=== PATIENT | male | born 1950 | race Caucasian/White ===

== ENCOUNTER 2023-08-24 08:40 | Inpatient (IN) | payer OTHER ==
[~2023-08-24] VITALS: Ht 180.3 cm; Wt 98.1 kg
[2023-08-24 09:31] LABS: BASOPHILS ABSOLUTE AUTO 0.04 K/mm3 (0.00-0.23); BASOPHILS PERCENT AUTO 1 % (0-2); EOSINOPHILS ABSOLUTE AUTO 0.11 K/mm3 (0.00-0.68); EOSINOPHILS PERCENT AUTO 2 % (0-6); Hematocrit 45.4 % (37.0-53.0); Hemoglobin 14.5 g/dL (13.5-17.5); IMMATURE GRAN ABSOLUTE AUTO 0.06 K/mm3 (0.00-0.10); IMMATURE GRAN PERCENT AUTO 1 % (0-1); LYMPHOCYTES ABSOLUTE AUTO 2.09 K/mm3 (0.84-5.20); LYMPHOCYTES PERCENT AUTO 28 % (21-46); MONOCYTES ABSOLUTE AUTO 0.34 K/mm3 (0.16-1.47); MONOCYTES PERCENT AUTO 5 % (4-13); Mean Corpuscular HGB 31.1 pg (26.0-34.0); Mean Corpuscular HGB Conc 31.9 g/dL (31.5-36.5); Mean Corpuscular Volume 97 fL (80-100); Mean Platelet Volume 9.3 fL (9.1-12.4); NEUTROPHILS ABSOLUTE AUTO 4.71 K/mm3 (1.96-9.15); NEUTROPHILS PERCENT AUTO 64 % (41-73); Platelet Count 287 K/mm3 (150-400); RDW Coefficient Variation 14.5 % (11.7-14.2); Red Blood Cell Count 4.66 M/mm3 (4.30-5.90); White Blood Cell Count 7.35 K/mm3 (4.00-11.30)
[2023-08-24 09:55] LABS: Albumin, Blood 4.4 g/dL (3.4-5.0); Albumin/Globulin Ratio 1.4 (0.8-1.8); Bilirubin, Total 0.5 mg/dL (0.1-1.0); Bun/Creatinine Ratio 12.4 (12.0-20.0); Calcium, Blood 9.2 mg/dL (8.5-10.1); Creatinine, Blood 1.61 mg/dL (0.60-1.20); Globulin, Blood 3.2 g/dL (2.2-4.0); Potassium, Blood 4.2 mmol/L (3.5-5.5); Total Protein, Blood 7.6 g/dL (6.4-8.2)
[2023-08-24 10:56] LABS: Influenza A, PCR NEGATIVE (NEGATIVE); Influenza B, PCR NEGATIVE (NEGATIVE); Resp Syncytial Virus, PCR NEGATIVE (NEGATIVE); SARS-Cov-2 (COVID-19) PCR, MMC NEGATIVE (NEGATIVE)
[2023-08-24 14:12] LABS: Bicarbonate Venous 31.4 mmol/L (24.0-30.0); PCO2 Venous 84.6 mmHg (38-42); pH Blood Venous 7.27 (7.34-7.37)
[2023-08-24] MEDS ORDERED: FLUT1DIS2 INH (15:00)
[2023-08-24] MEDS ORDERED: EUTHYROX125 MCG PO (16:23)
[2023-08-24] MEDS ORDERED: AMLO10 PO (16:24)
[2023-08-24] MEDS ORDERED: Crestor40 MG PO (16:25)
[2023-08-24] MEDS ORDERED: FLUT1DIS8 INH (16:26)
[2023-08-24] MEDS ORDERED: ALBU90OI INH (16:26)
[2023-08-24] MEDS ORDERED: ASPI81CH PO (16:27)
[2023-08-24] MEDS ORDERED: THERA-D2000 UNIT PO (16:27)
[2023-08-24] MEDS ORDERED: CENTRUM SILVER1 EAC2 PO (16:27)
[2023-08-24] MEDS ORDERED: Acerola C500 MG PO (16:28)
[2023-08-24] MEDS ORDERED: B-12500 MC2 PO (16:29)
--- NOTE | 2023-08-24 19:32 | NUR ---
SHIFT SUMARY- PT ALERT AND ORIENTED, ADMITTED THROUGHT THE ED CRITICAL VBG RESULT. PT PLACED ON BIPAP OVERNIGHT. CONT BIOX. PT RA AT BASELINE CURRENTLY REQUIRING 2L VIA NC 9L BLEED IN WITH BIPAP SATS WERE DROPPING TO THE 86% RANGE WITH 7L BLEED IN RT IS AWARE AND IS TRYING TO FIX THE ISSUE. NIGHT RN AWARE BEDSIDE REPORT COMPLETED WITH NIGHT RN SERAFIN.
[2023-08-24 19:51] VITALS: BP 124/62
[2023-08-25 02:59] VITALS: BP 120/68
--- NOTE | 2023-08-25 04:26 | NUR ---
SHIFT SUMMARY PATIENT LESS LETHARGIC AND ABLE TO ANSWER QUESTIONS. AXOX 3-4 AND 1-2 ASSIST TO BSC. REFUSED MEDICATIONS. ON 9L O2 BLEED IN TO BIPAP PER RT. PIV REMAINS INTACT. LR INFUSING AT 125 mL/HR. VSS/AFEBRILE. DENIES CHEST PAIN AND N/V. IV SOLU-MEDROL GIVEN PER EMAR. CALL LIGHT IN REACH. BED IN LOWEST POSITION. WILL CONTINUE TO MONITOR UNTIL DAY SHIFT NURSE ASSUMES CARE.
[2023-08-25 06:05] LABS: BASOPHILS ABSOLUTE AUTO 0.03 K/mm3 (0.00-0.23); BASOPHILS PERCENT AUTO 0 % (0-2); EOSINOPHILS ABSOLUTE AUTO 0.03 K/mm3 (0.00-0.68); EOSINOPHILS PERCENT AUTO 0 % (0-6); Hematocrit 44.8 % (37.0-53.0); Hemoglobin 14.7 g/dL (13.5-17.5); IMMATURE GRAN ABSOLUTE AUTO 0.07 K/mm3 (0.00-0.10); IMMATURE GRAN PERCENT AUTO 1 % (0-1); LYMPHOCYTES ABSOLUTE AUTO 1.34 K/mm3 (0.84-5.20); LYMPHOCYTES PERCENT AUTO 17 % (21-46); MONOCYTES ABSOLUTE AUTO 0.08 K/mm3 (0.16-1.47); MONOCYTES PERCENT AUTO 1 % (4-13); Mean Corpuscular HGB 31.2 pg (26.0-34.0); Mean Corpuscular HGB Conc 32.8 g/dL (31.5-36.5); Mean Corpuscular Volume 95 fL (80-100); Mean Platelet Volume 9.8 fL (9.1-12.4); NEUTROPHILS ABSOLUTE AUTO 6.27 K/mm3 (1.96-9.15); NEUTROPHILS PERCENT AUTO 80 % (41-73); Platelet Count 284 K/mm3 (150-400); RDW Coefficient Variation 14.6 % (11.7-14.2); RDW Standard Deviation 50.8 fL (35.1-46.3); Red Blood Cell Count 4.71 M/mm3 (4.30-5.90); White Blood Cell Count 7.82 K/mm3 (4.00-11.30)
[2023-08-25 06:24] LABS: Albumin, Blood 4.1 g/dL (3.4-5.0); Albumin/Globulin Ratio 1.2 (0.8-1.8); Bilirubin, Total 0.6 mg/dL (0.1-1.0); Bun/Creatinine Ratio 12.9 (12.0-20.0); Calcium, Blood 9.1 mg/dL (8.5-10.1); Creatinine, Blood 1.7 mg/dL (0.60-1.20); Globulin, Blood 3.3 g/dL (2.2-4.0); Potassium, Blood 4.4 mmol/L (3.5-5.5); Total Protein, Blood 7.4 g/dL (6.4-8.2)
[2023-08-25 07:45] VITALS: BP 104/60
--- NOTE | 2023-08-25 11:53 | NUR ---
CALLED RT- PT AMBULATED TO THE BATHROOM, HAD A BM. UPON RETURNING TO THE BED HIS NC COME OFF AND WAS HANGIGN FROM ONE EAR. PT ASSISTED TO SIT UP IN BED, BOSTED BY HIS DAUGHTER AND THIS RN. NC REPLACED, CONT PULSE OX RECONNECTED SATS 79%. O2 INCREASED, FOR RECOVERY PURPOSES, TO 5L VIA NC. 5 MINUTES OR A LITTLE MORE LATER SATS HAD CLIMBED TO 87%. O2 REDUCED BACK TO 3L VIA NC. RT AT THE BEDSIDE AND PLACED THE PT ON C-PAP. PT RECIEVING BREATHING Tx AT THIS TIME. RESP RATE HAS RETURNED TO MORE NORMAL RATE 18. SATS 88-90% ON BI-PAP WITH 5L BLEED IN.
[2023-08-25 16:16] VITALS: BP 116/63
[2023-08-25 19:45] VITALS: BP 105/60
--- NOTE | 2023-08-25 19:55 | NUR ---
SHIFT SUMMARY- PT ALERT AND ORIENTED 1PA TO THE BATHROOM (D/T LINES AND TUBES). PT DESATS ON ROOM AIR AND TAKES A LOT OF TIME TO RECOVER. TODAY HIS NC BECAME DISLODGED AND HE DROPPED TO 79% BETWEEN THE TOILET AND THE BEDSIDE. RT IS AWARE. MD IS AWARE. PLAN IS TO CONTINUE TO MONITOR TONIGHT, AND POSSIBLY DC HOME TOMORROW AFTER A HOME O2 EVAL. BEDSIDE REPORT COMPLETED WITH NIGHT RN SERAFIN. PT IN BED, CALL LIGHT IN REACH NO S&S OF DISTRESS NOTED.
[2023-08-26 02:31] VITALS: BP 103/58
--- NOTE | 2023-08-26 04:20 | NUR ---
SHIFT SUMMARY PATIENT HAD NO ACUTE CHANGES. AXOX 4 AND SBA TO BR. ON 3.5 L O2 NC AND 7L BLEED INTO BIPAP. DESTATS WHEN UP TO BR INTO THE 80'S ON NC. RT IN FOR BREATHING TX. DENIES CHEST PAIN AND N/V. TELE MONITOR NSR 77. VSS/AFEBRILE. PIV REMAINS INTACT. LR INFUSING @ 125mL/HR. CALL LIGHT IN REACH. BED IN LOWEST POSITION. WILL CONTINUE TO MONITOR UNTIL DAY SHIFT NURSE ASSUMES CARE.
[2023-08-26 05:01] LABS: BASOPHILS ABSOLUTE AUTO 0.02 K/mm3 (0.00-0.23); BASOPHILS PERCENT AUTO 0 % (0-2); EOSINOPHILS ABSOLUTE AUTO 0.09 K/mm3 (0.00-0.68); EOSINOPHILS PERCENT AUTO 1 % (0-6); Hematocrit 42.7 % (37.0-53.0); Hemoglobin 14.1 g/dL (13.5-17.5); IMMATURE GRAN ABSOLUTE AUTO 0.11 K/mm3 (0.00-0.10); IMMATURE GRAN PERCENT AUTO 1 % (0-1); LYMPHOCYTES ABSOLUTE AUTO 1.37 K/mm3 (0.84-5.20); LYMPHOCYTES PERCENT AUTO 9 % (21-46); MONOCYTES PERCENT AUTO 3 % (4-13); Mean Corpuscular HGB 30.9 pg (26.0-34.0); Mean Corpuscular Volume 93 fL (80-100); Mean Platelet Volume 10.1 fL (9.1-12.4); NEUTROPHILS ABSOLUTE AUTO 12.86 K/mm3 (1.96-9.15); NEUTROPHILS PERCENT AUTO 87 % (41-73); Platelet Count 275 K/mm3 (150-400); RDW Coefficient Variation 14.8 % (11.7-14.2); RDW Standard Deviation 50.8 fL (35.1-46.3); Red Blood Cell Count 4.57 M/mm3 (4.30-5.90); White Blood Cell Count 14.85 K/mm3 (4.00-11.30)
[2023-08-26 06:03] LABS: Creatinine, Blood 1.62 mg/dL (0.60-1.20); Potassium, Blood 4.2 mmol/L (3.5-5.5)
[2023-08-26 07:27] VITALS: BP 110/51
--- NOTE | 2023-08-26 08:07 | NUR ---
ASSUMED CARE OF PT- EDSIDE REPORT COMPLETED WITH CARMELO RN. PT ALERT AND ORIENTED, SLEEPY HE WOKE FOR REPORT. PER REPORT PT USED THE BIPAP FOR ABOUT 75% OF THE NIGHT. PT CURRENTLY ON 3.5L VIA NC. PT IN BED, CALL LIGHT IN REACH NO S&S IF DISTRESS NOTED.
--- NOTE | 2023-08-26 10:07 | NUR ---
CALLED DR PLUMMER- PT IS GOING TO BE OFF BIPAP FOR THE DAY AND SEE HOW HE RESPONDS. HOWEVER HE IS STILL ON LR AT 125ML/HR AND 60MG IV SOLUMEDROL Q6. ORDER RECIEVED TO DC IVF AT THIS TIME WILL CHANGE THE ORDER FOR SOLUMEDROL.
[2023-08-26 15:31] VITALS: BP 85/46
--- NOTE | 2023-08-26 19:27 | NUR ---
SHIFT SUMMARY- PT ALERT AND ORIENTED, HE HAS BEEN AMBULATING TO THE BATHROM INDEPENDENT OF STAFF BUT WITH FAMILY HELPING WITH THE LINES AND TUBES. PT IS CURRENTLY IN BED SLEEPING, HE HAS BEEN SLEEPNG A LOT T/O THE DAY. HE WAS ENCOURAGED TO SIT UP IN A CHAIR THIS EVENING FOR DINNER HOWEVER HE ONLY SAT UP FOR A FEW MINUTES BEFORE CRAWLING BACK INTO BED TO SLEEP. THE PLAN IS TO HAVE THE PT NOT USE THE BIPAP AT ALL TODAY OR TONIGHT, THEN CHECK A VBG IN THE MORING. NIGHT RN AWARE. IF THE PT SHULD HAVE DISTRESS OR BECOME SYMPTOMATIC THEN VBG SHOULD BE DRAWN AT HE TIME OF EVENT AND THE PT CAN BE PLACED BACK ON THE BIPAP. BEDSIDE REPORT COMPLETED WITH THE NIGHT RN. PT IN BED SLEEPING, WOKE TO STAFF VOICES. PT STATES HE FEELS A LITTLE OFF (APPEARS A LITTLE CONFUSED, HOWEVER CAN ANSWER ORIENTATION QUESTIONS) HE STATES HE FEELS GOOD, BUT JUST A LITTLE OUT OF SORTS. NIGHT RN PRESENT FOR THE CONVERSATION. PT HAS HIS CALL LIGHT AND INDICATED THE CORRECT BUTTON TO PUSH IF HE NEEDS ASSISTANCE. NO CURRENT S&S OF DISTRESS NOTED.
[2023-08-26 19:44] VITALS: BP 100/54
[2023-08-27 03:44] VITALS: BP 105/58
--- NOTE | 2023-08-27 04:22 | NUR ---
SHIFT SUMMARY PATIENT HAD NO ACUTE CHANGES. AXOX 4 AND SBA TO BR. ON 5L BLEED INTO BIPAP. ON 4L O2 NC WHEN NOT ON BIPAP STATING 92% ON CONTINUOUS PULSE OXIMETRY. PIV REMAINS INTACT. IV SOLU-MEDROL GIVEN PER EMAR. RT IN FOR MULTIPLE BREATHING TX. DENIES CHEST PAIN AND N/V. VSS/AFEBRILE. SLEPT MOST OF THE SHIFT. CALL LIGHT IN REACH. BED IN LOWEST POSITION. WILL CONTINUE TO MONITOR UNTIL DAY SHIFT NURSE ASSUMES CARE.
[2023-08-27 04:48] LABS: Base Excess Venous 8.2 mmol/L; PCO2 Venous 43.6 mmHg (38-42); pH Blood Venous 7.47 (7.34-7.37)
[2023-08-27 05:23] LABS: Bun/Creatinine Ratio 19.6 (12.0-20.0); Calcium, Blood 9.1 mg/dL (8.5-10.1); Creatinine, Blood 1.38 mg/dL (0.60-1.20); Potassium, Blood 4.1 mmol/L (3.5-5.5)
[2023-08-27 08:05] VITALS: BP 118/60
[2023-08-27 15:23] VITALS: BP 125/71
[2023-08-27] MEDS ORDERED: Prednisone20 MG PO (17:22)
[2023-08-27] MEDS ORDERED: IPRAT-ALBUT 0.5-3 ML INH (17:23)
--- NOTE | 2023-08-27 18:19 | NUR ---
PT DISCHARGED FROM THE UNIT. IV REMOVED. HOME O2 WAS SENT WITH PT. MEDICATIONS FAXED TO PHARMACY. DISCHARGE INSTRUCTIONS REVIEWED. PT LEFT UNIT VIA WC. FAMILY TO DRIVE HOME
== END 2023-08-27 17:43 | disposition home or self-care (01) | DRG 189 ==
LOC: ER 08:40 → MEDS 08:41 → ENPENDDIS 08-27 15:58 → MEDS 08-27 17:43
PROVIDERS: Emergency Medicine; Family Medicine; ADMIT Hospitalist
PROC: 5A09457 Assistance with Respiratory Ventilation, 24-96 Consecutive Hours, Continuous Positive Airway Pressure (ICD-10-PCS; principal; 2023-08-24)
DX: J96.21 Acute and chronic respiratory failure with hypoxia (principal); J44.1 Chronic obstructive pulmonary disease with (acute) exacerbation; E87.4 Mixed disorder of acid-base balance; N17.9 Acute kidney failure, unspecified; J96.22 Acute and chronic respiratory failure with hypercapnia; I10 Essential (primary) hypertension; E03.9 Hypothyroidism, unspecified; E78.5 Hyperlipidemia, unspecified; E86.0 Dehydration; Z91.148 Patient's other noncompliance with medication regimen for other reason; F17.210 Nicotine dependence, cigarettes, uncomplicated; Z71.6 Tobacco abuse counseling; Z11.52 Encounter for screening for COVID-19
CPT/HCPCS: 0241U; 36415; 71045; 80048; 80053; 82803; 83880; 84439; 84443; 84484; 85025; 93005; 93010; 94640; 94644; 94660; 94664; 94761; 94762; 96361; 96365; 96366; 96372; 96374; 96376; 99285-25; A9270; G0378; J0456; J1650; J2930; J7050; J7120